=== PATIENT | female | born 1975 | race African-American/Black ===

== ENCOUNTER 2019-07-02 23:19 | Emergency (ER) | payer SELFPAY ==
[~2019-07-02 23:19] MED LIST: AMIDATE IV ONE; ZEMURON IV ONE
[2019-07-03 00:09] LABS: Basophils % (Auto) 0.3 % (0.0-1.8); Eosinophils # (Auto) 0.3 K/mm3 (0.0-0.4); Eosinophils % (Auto) 1.9 % (0.0-4.3); Hematocrit 42.6 % (30.3-42.9); Hemoglobin 14.2 gm/dl (10.1-14.3); Lymphocytes # (Auto) 4.4 K/mm3 (1.2-5.4); Mean Corpuscular HGB Conc 33 % (30-34); Mean Corpuscular Volume 92 fl (79-97); Monocytes # (Auto) 0.9 K/mm3 (0.0-0.8); Monocytes % (Auto) 6.4 % (0.0-7.3); Platelet Count 233 K/mm3 (140-440); Red Blood Count 4.62 M/mm3 (3.65-5.03); Red Cell Distribution Width 12.9 % (13.2-15.2)
[2019-07-03 00:46] LABS: BUN/Creatinine Ratio 30; Blood Urea Nitrogen 18 mg/dL (7-17); Calcium 8.7 mg/dL (8.4-10.2); Hemolysis Index 14
--- NOTE | 2019-07-03 02:26 | XRay Report ---
CHEST 2 VIEWS INDICATION / CLINICAL INFORMATION: weakness. COMPARISON: None available. Impression: Cardiomegaly with mild bilateral cardiopulmonary edema. Signer Name: Richard Dallas MD Signed: 07/03/2019 2:21 AM Workstation Name: [id number]
[2019-07-03] MEDS ORDERED: NORMODYNE IV ONE (02:39)
--- NOTE | 2019-07-03 02:52 | Cat Scan Report ---
CT head without contrast INDICATION : Altered mental status TECHNIQUE: Axial imaging performed from the skull apex through the skull base without the use of con trast. All CT examinations performed at this facility utilize dose modulation, iterative reconstruct ion or weight-based dosing, when appropriate, to reduce radiation dose to as low as reasonably achiev able. COMPARISON: None FINDINGS: There is a large acute intraventricular hemorrhage involving the third and fourth ventricle s causing severe hydrocephalus. There is chronic appearing encephalomalacia involving the right front al lobe. There is evidence of posterior craniotomy. The overall degree of hydrocephalus has significa ntly worsened from the prior exam on 07/23/20202014. The paranasal sinuses are clear. Orbits are unre markable IMPRESSION: Large acute intraventricular hemorrhage involving the third and fourth ventricles with ob structive hydrocephalus which has worsened from 07/23/2015 CRITICAL RESULT: Time of Discovery: 145 Time of Communication: 147 Licensed Practitioner Receiving Report: Vik Read Back Performed: Yes. Signer Name: Richard Dallas MD Signed: 07/03/2019 2:47 AM Workstation Name: [id number]
[2019-07-03] MEDS ORDERED: KEPPRA 1,000 MG/NS 0.75% 100ML 1,000 MG/100 ML BAG IV ONE (02:54)
[2019-07-03] MEDS ORDERED: ARTIFICIAL TEARS OPHTH OINT OU PRN (03:07)
[2019-07-03] MEDS ORDERED: VASELINE LIP THERAPY TP PRN (03:07)
--- NOTE | 2019-07-03 03:07 | Emergency Department Report ---
HPI - General Chief Complaint: Weakness Time Seen by Provider: 07/03/19 02:46 - HPI HPI: 44-year-old female presents to the emergency department, with her son, with a complaint of a headache, weakness, and some decreased responsiveness. She complained her son about 11:30 PM about a bad posterior headache. He says that she displayed some weakness as he was trying to get her into the emergency department. 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 However, this left-sided deficit/weakness this had improved over time with physical therapy. Her primary care physician is Dr. wendy Carolina. The patient came back to room #[address] scan of the head done, from triage, and the patient has a GCS of 3 with snoring respirations. ED Past Medical Hx - Past Medical History Previous Medical History?: Yes Hx Hypertension: Yes Hx CVA: Yes (4 years ago, left side weakness) Hx Diabetes: Yes (prediabetic) Additional medical history: HEPATITIS B, high cholesterol - Social History Smoking Status: Never Smoker Substance Use Type: None - Medications Home Medications: Home Medications Medication Instructions Recorded Confirmed Last Taken Type No Known Home Medications [No 07/23/15 07/23/15 Unknown History Reported Home Medications] ED Review of Systems ROS: Stated complaint: GARZA,VOMITING, 1 WEEK IN LEGS Other details as noted in HPI Comment: Unobtainable due to pts medical conditions Physical Exam - Physical Exam Vital Signs: Vital Signs 07/02/19 07/03/19 23:23 01:05 Temperature 98.3 F Pulse Rate 111 H 118 H Respiratory 18 18 Rate Blood Pressure 180/118 Blood Pressure 180/124 [Right] O2 Sat by Pulse 96 100 Oximetry Physical Exam: GENERAL: Patient is ill-appearing and unresponsive. HENT: Normocephalic. Atraumatic. Patient has moist mucous membranes. EYES: Pupils are sluggish to respond but equal bilaterally. No spontaneous eye opening. NECK: Supple. Trachea is midline. CHEST/LUNGS: Clear to auscultation. Patient has shallow snoring respirations. There is respiratory distress noted. HEART/CARDIOVASCULAR: Regular. There is mild tachycardia. There is no murmur. ABDOMEN: Abdomen is soft. Patient has normal bowel sounds. There is no abdomi nal distention. SKIN: Skin is warm and dry. NEURO: The patient is unresponsive to verbal or even painful stimuli. MUSCULOSKELETAL: There is no obvious deformity.There is no evidence of acute injury. ED Course Vital Signs 07/02/19 07/03/19 23:23 01:05 Temperature 98.3 F Pulse Rate 111 H 118 H Respiratory 18 18 Rate Blood Pressure 180/118 Blood Pressure 180/124 [Right] O2 Sat by Pulse 96 100 Oximetry - Consultations Consultation #1: I spoke with the neuro critical care stiff leg derrick operator and the neurosurgeon at [facility] and the patient was accepted for transfer to [facility] under Dr. Jc. 07/03/19 03:15 - Intubation Time Out Performed: Yes Sedative: Etomidate Mg Given: 20 Paralytic: Rocuronium Mg Given: 60 Laryngoscope: other (Glydescope) Size: 4 ET Tube Size: 7.5 Tube Secured Depth (cm): 20 Tube Secured Location: lips Tube Placement Confirmation: visualized tube passing t, equal breath sounds bilat, confirmation by capnometr Patient Tolerated Procedure: well Intubation Complications: none ED Medical Decision Making - Lab Data Result diagrams: 07/02/19 23:55 07/02/19 23:55 - EKG Data -: EKG Interpreted by Me EKG shows normal: sinus rhythm, axis, intervals, QRS complexes, ST-T waves Rate: normal - EKG Data When compared to previous EKG there are: previous EKG unavailable Interpretation: normal EKG - Radiology Data Radiology results: report reviewed, image reviewed interpreted by me: Chest x-ray does not show any acute process. There are no pleural effusions, obvious pneumonia and there is no pneumothorax. CT head without contrast INDICATION : Altered mental status TECHNIQUE: Axial imaging performed from the skull apex through the skull base without the use of contrast. All CT examinations performed at this facility utilize dose modulation, iterative reconstruction or weight-based dosing, when appropriate, to reduce radiation dose to as low as reasonably achievable. COMPARISON: None FINDINGS: There is a large acute intraventricular hemorrhage involving the third and fourth ventricles causing severe hydrocephalus. There is chronic appearing encephalomalacia involving the right frontal lobe. There is evidence of posterior craniotomy. The overall degree of hydrocephalus has significantly worsened from the prior exam on 07/23/20202014. The paranasal sinuses are clear. Orbits are unremarkable IMPRESSION: Large acute intraventricular hemorrhage involving the third and fourth ventricles with obstructive hydrocephalus which has worsened from 07/23/2015 - Medical Decision Making This patient was brought in by her son originally for a headache and some generalized weakness. She has slowly become less responsive. By the time she got back from CT scan of the head being completed she was unresponsive with shal low snoring respirations. For this reason, and for protection of airway, the patient was intubated. The CT scan of the head came back showing a large intraventricular bleed with some hydrocephalus. The patient has extremely elevated blood pressure and was given some labetalol, hydralazine, and then started on a Cardene drip. Labs are mostly unremarkable. Initially I spoke with [facility] but there were no beds available in the neuro ICU. I then was able to speak with [facility] who accepted the patient for transfer to the [facility]. - Differential Diagnosis ischemic CVA, hemorrhagic CVA, malignancy, aneurysm rupture Critical Care Time: Yes Critical care time in (mins) excluding proc time.: 35 Critical care attestation.: If time is entered above; I have spent that time in minutes in the direct care of this critically ill patient, excluding procedure time. Critical care time was spent on this patient and doing her initial evaluation, multiple re- evaluations, ordering and interpretation of labs and imaging, discussion with the neuro critical care and stroke attendings, multiple discussions with the patient's family. Critical Care Time: 35 minutes ED Disposition Clinical Impression: Accelerated hypertension, Hemorrhagic cerebrovascular accident (CVA) Respiratory failure Qualifiers: Chronicity: acute Respiratory failure complication: unspecified whether with hypoxia or hypercapnia Qualified Code(s): J96.00 - Acute respiratory failure, unspecified whether with hypoxia or hypercapnia Disposition: DC/TX-70 ANOTHER TYPE HLTHCARE Is pt being admited?: No Condition: Critical Referrals: FLORI GONZALEZ MD [Primary Care Provider] - 3-5 Days Time of Disposition: 05:20
[2019-07-03] MEDS ORDERED: APRESOLINE IV ONE (03:50)
[2019-07-03 03:52] LABS: INR 1.07 (0.87-1.13)
[2019-07-03 03:53] LABS: Partial Thromboplastin Time 29.4 Sec. (24.2-36.6)
[2019-07-03] MEDS ORDERED: CARDENE 50 MG in NACL 0.9% 250ML 230 ML IV SCH (04:00)
[2019-07-03 04:03] VITALS: BP 205/142
--- NOTE | 2019-07-03 04:06 | XRay Report ---
CHEST 1 VIEW INDICATION / CLINICAL INFORMATION: Dyspnea COMPARISON: None available. FINDINGS: SUPPORT DEVICES: Endotracheal tube terminates about 5 cm from the margret superiorly.. HEART / MEDIASTINUM: No significant abnormality. LUNGS / PLEURA: No significant pulmonary or pleural abnormality. No pneumothorax. ADDITIONAL FINDINGS: No significant additional findings. IMPRESSION: 1. No acute findings. Signer Name: Richard Dallas MD Signed: 07/03/2019 4:02 AM Workstation Name: [id number]
== END 2019-07-03 04:38 | disposition other institution (70) ==
LOC: ED 23:19
DX: J96.00 Acute respiratory failure, unspecified whether with hypoxia or hypercapnia (principal); I62.9 Nontraumatic intracranial hemorrhage, unspecified; I10 Essential (primary) hypertension; E11.9 Type 2 diabetes mellitus without complications; E78.00 Pure hypercholesterolemia, unspecified; Z86.73 Personal history of transient ischemic attack (TIA), and cerebral infarction without residual deficits; Z91.013 Allergy to seafood
CPT/HCPCS: 31500; 36415; 70450; 71045; 71046; 80048; 85025; 85610; 85730; 93005; 93010; 96374; 96375; 99291; J1953; J7050; 94002; 96365